=== PATIENT | female | born 1980 | race Caucasian/White ===

== ENCOUNTER 2021-10-02 02:16 | Emergency (ER) | payer MEDICAID ==
[~2021-10-02] VITALS: Ht 162.6 cm; Wt 93.6 kg
[2021-10-02 02:27] VITALS: BP 125/75
[2021-10-02] MEDS ORDERED: ketorolac trometh. 30mg/ml inj. IV ONE (04:15)
[2021-10-02] MEDS ORDERED: normal saline 1000ml 1,000 ML IV ONE (04:15)
[2021-10-02] MEDS ORDERED: SUMAtriptan succ. 6 MG/0.5ml vial SQ ONE (04:15)
[2021-10-02] MEDS ORDERED: acetaminophen 325mg tablet PO ONE (04:15)
[2021-10-02] MEDS ORDERED: proCHLORperazine 10 MG/2 ml inj IV ONE (04:15)
[2021-10-02] MEDS ORDERED: aspirin 325mg tablet PO ONE (04:15)
== END 2021-10-02 05:28 | disposition home or self-care (01) ==
LOC: ER 02:16
DX: R51.9 Headache, unspecified (principal); Z72.89 Other problems related to lifestyle
CPT/HCPCS: 96361; 96372; 96374; 96375; 99284; J0780; J1885; J3030; J7030